=== PATIENT | female | born 1960 | race Caucasian/White ===

== ENCOUNTER 2019-03-29 13:24 | Day surgery (SDC) | payer OTHER ==
[2019-03-29] MEDS ORDERED: PROPOFOL 10 MG/ML VIAL IV ONE (13:25)
[2019-03-29] MEDS ORDERED: LIDOCAINE 2% MDV (20MG/ML) 20ML VIAL IV ONE (13:25)
--- NOTE | 2019-03-30 12:20 | Operative Note ---
OPERATION: COLONOSCOPY with biopsy. PREOPERATIVE DIAGNOSIS: Personal history of cecal cancer. POSTOPERATIVE DIAGNOSIS: Anastomotic nodule, otherwise normal exam. PREPARATION QUALITY: Good. ESTIMATED BLOOD LOSS: Minimum. COMPLICATIONS: None apparent. PROCEDURE: After informed consent was obtained from the patient, she was placed in the left lateral decubitus position in the endoscopy suite, sedated and monitored by the department of anesthesia. Digital rectal exam was unremarkable. A well-lubricated BHQ202 colonoscope was inserted into the rectum and advanced to the ileocolonic anastomosis. There was a small nodule somewhat hyperemic, perhaps it was a granuloma. In any event, this area was biopsied. There was a small amount of bleeding. This bleeding ceased. The remainder of the anastomosis, remaining ascending colon, transverse colon, descending colon, sigmoid colon, and rectum were otherwise unremarkable. Forward and J-turn views of the rectum and anorectum were unrevealing. The endoscope was straightened, the rectal ampulla deflated, and the endoscope was removed. RECOMMENDATIONS: The patient should undergo repeat exam in 3 years provided the biopsy is unremarkable. As always, thank you for allowing me to participate in the healthcare of your patients. CC: DO CARMEN Weston
== END 2019-03-29 14:12 | disposition home or self-care (01) ==
LOC: HOP 13:24
PROVIDERS: ATTEND Internal Medicine Gastroenterology
DX: Z12.11 Encounter for screening for malignant neoplasm of colon (principal); Z85.038 Personal history of other malignant neoplasm of large intestine; K63.89 Other specified diseases of intestine; K52.89 Other specified noninfective gastroenteritis and colitis; I10 Essential (primary) hypertension